=== PATIENT | male | born 1980 | race Caucasian/White ===

== ENCOUNTER → 2021-04-04 | Outpatient (CLI) | payer OTHER ==
--- NOTE | 2021-04-04 09:37 | RAD ---
EXAM: Abdomen sonogram. HISTORY: Umbilical hernia. TECHNIQUE: Sonographic imaging of the abdomen was performed. COMPARISON: None. FINDINGS: There is a defect within the umbilical wall the level of the umbilicus measuring 4.2 cm in maximum dimension. There is herniated fat at this level. No herniated loop of bowel is seen. IMPRESSION: Small fat-containing umbilical hernia. Electronically signed by: Rocío Alvarez MD (04/04/2021 9:34 AM) [id number]
== END ==
LOC: US 08:55
PROVIDERS: ATTEND Preventive Medicine Occupational Medicine
DX: K42.9 Umbilical hernia without obstruction or gangrene (principal); R10.9 Unspecified abdominal pain
CPT/HCPCS: 76705